=== PATIENT | female | born 1990 | race Caucasian/White ===

== ENCOUNTER → 2017-12-22 | Outpatient (CLI) | payer BC, SELFPAY ==
[~2017-12-22] MED LIST: Amoxicillin875 MG PO; BUPR75 PO; Bactrim Ds Tab1 EACH PO; CITA20; CITA20 PO; ESCI20 PO; HYDACE5 PO; HYDHCL25 PO; HYOS.125 SL; IBUP800 PO; LORA.5 PO; METF500 PO; METF850; METPHE18ER; Metformin HCl750 MG PO; NUVA RING; NYST100000 PO; OFLO.3OTSO AS; OSEL75CA PO; OXYACE5T PO; PRED10 PO; PROM25 PO; RXLORA1 PO; YAZ BCP; [UNRECOGNIZED DRUG - OTHER]; [UNRECOGNIZED DRUG - REMARK]
[2017-12-23 09:28] LABS: Candida species (DNA Probe) Positive (NEGATIVE); G. vaginalis (DNA Probe) Negative (NEGATIVE); T. vaginalis (DNA Probe) Negative (NEGATIVE)
[2017-12-23 10:06] LABS: Source VAG/CERV
== END ==
LOC: LAB 13:33
PROVIDERS: Obstetrics & Gynecology
DX: Z01.419 Encounter for gynecological examination (general) (routine) without abnormal findings (principal); N76.0 Acute vaginitis
CPT/HCPCS: 87480; 87510; 87660; G0123